=== PATIENT | male | born 1985 | race Caucasian/White ===

== ENCOUNTER 2016-06-17 10:50 | Emergency (ER) | payer OTHER ==
[~2016-06-17] VITALS: Ht 170.2 cm; Wt 124.0 kg
[~2016-06-17 10:50] MED LIST: ACID CONTROL150 MG PO; ADDERALL10 MG PO; BENTYL10 MG PO; CARAFATE100 MG/ML PO; CIPRO500 MG PO; CITALOPRAM HBR20 MG PO; CLEOCIN300 MG PO; CLINDAMYCIN HC300 MG PO; CLONIDINE HCL0.1 MG PO; DESYREL100 MG PO; FAMOTIDINE20 MG PO; FLEXERIL10 MG PO; FLUOXETINE HCL10 MG PO; HYDROCODON-ACE1 EAC7 PO; HYDROXYZINE PAM50 MG PO; IBUPROFEN200 M1 PO; INDOCIN25 MG PO; LIDOCAINE20 MG/1 M5 PO; LISINOPRIL10 MG PO; LISINOPRIL5 MG PO; METHADONE5 MG PO; MOTRIN800 MG PO; NAPROSYN500 MG PO; NO HOME MEDS; NORCO 5/3251 TABLET PO; NORCO 7.5/321 TABLET PO; PEPCID20 MG PO; PERCOCET 10/1 TABLET PO; PERCOCET 5/31 TABLET PO; PREDNISONE10 M1 PO; PROMETHAZINE HC25 M1 PO; REGLAN10 MG PO; TRAZODONE HCL50 MG PO; ULTRAM50 MG PO; VENTOLIN HFA18 GM IH; ZITHROMAX Z-PA250 MG PO; ZOFRAN ODT4 MG PO; ZOFRAN ODT8 MG PO; ZOFRAN4 MG PO
[2016-06-17] MEDS ORDERED: LISINOPRIL-HCT1 EACH PO (12:05)
[2016-06-17] MEDS ORDERED: MOTRIN800 MG PO (12:40)
[2016-06-17] MEDS ORDERED: PREDNISONE20 MG PO (12:40)
[2016-06-17] MEDS ORDERED: ATARAX,VISTARIL25 MG PO (12:40)
[2016-06-17 14:17] VITALS: BP 160/110
== END 2016-06-17 14:18 | disposition home or self-care (01) ==
LOC: RME 10:50 → EME 10:50 → RME 14:18
DX: L25.8 Unspecified contact dermatitis due to other agents (principal); S90.122A Contusion of left lesser toe(s) without damage to nail, initial encounter; W20.8XXA Other cause of strike by thrown, projected or falling object, initial encounter; Y93.B9 Activity, other involving muscle strengthening exercises; I10 Essential (primary) hypertension; F17.200 Nicotine dependence, unspecified, uncomplicated
CPT/HCPCS: 73630; 99281; 99284; J7512; Q0177

== ENCOUNTER 2016-07-14 12:10 | Emergency (ER) | payer OTHER ==
[~2016-07-14] VITALS: Ht 170.2 cm; Wt 125.0 kg
[~2016-07-14 12:10] MED LIST changes: +ATARAX,VISTARIL25 MG PO; +LISINOPRIL-HCT1 EACH PO; +PREDNISONE20 MG PO
[2016-07-14 14:49] LABS: ADD MIUA? YES; BILIRUBIN NEGATIVE; BLOOD NEGATIVE; COLOR YELLOW ((YELLOW)); GLUCOSE (STRIP) NEGATIVE; KETONES NEGATIVE; LEUKOCYTES NEGATIVE; NITRITE NEGATIVE; PROTEIN (STRIP) NEGATIVE; SPECIFIC GRAVITY 1.032 (1.000-1.030); UROBILINOGEN 0.2 MG/DL (0.2-1.0)
[2016-07-14 14:52] LABS: BACTERIA RARE /HPF; EPITHELIAL CELLS RARE /HPF; MUCUS 2+ /LPF; RED BLOOD CELLS 0-5 /HPF (0-5); UCUL ADDED? NO; WHITE BLOOD CELLS 0-5 /HPF (0-5)
[2016-07-14 14:53] LABS: CASTS NONE SEEN /LPF; CRYSTALS NONE SEEN
[2016-07-14 15:02] LABS: HEMATOCRIT 43.9 % (38.0-50.0); MCHC 34.2 G/DL (30.0-36.0); MCV 84.7 FL (86-99); MEAN PLAT.VOLUME 9.7 uM^3 (9.0-12.4); PLATELET COUNT 298 K/uL (156-360); RBC DIS.WIDTH-CV 13.9 % (11.8-14.6); RBC DIS.WIDTH-SD 42.6 % (39-53); RED BLOOD COUNT 5.18 M/uL (4.00-5.50); WHITE BLOOD COUNT 9.7 K/uL (4.1-10.2)
[2016-07-14 15:14] LABS: CHLORIDE 105 mEq/L (99-109); POTASSIUM 4.2 mEq/L (3.7-5.4); SODIUM 138 mEq/L (136-147)
[2016-07-14 15:17] LABS: GLUCOSE 106 mg/dL (70-99)
[2016-07-14 15:18] LABS: ANION GAP 8 MEQ/L (2-14); TOTAL BILIRUBIN 0.3 mg/dL (0.0-1.0)
[2016-07-14 15:20] LABS: ALKALINE PHOSPHATASE 63 IU/L (3-129); GFR ESTIMATE (CALCULATED) > 59 mL/min/
[2016-07-14 15:21] LABS: UREA NITROGEN (BUN) 15 mg/dL (9-23)
[2016-07-14 16:19] LABS: LIPASE 164 U/L (1.0-51.0)
[2016-07-14] MEDS ORDERED: PROMETHAZINE HC25 M1 PO (18:59)
[2016-07-14] MEDS ORDERED: CARAFATE1 GM PO (18:59)
[2016-07-14] MEDS ORDERED: PRILOSEC OTC20 MG PO (18:59)
[2016-07-14] MEDS ORDERED: PERCOCET 5/31 TABLET PO (18:59)
[2016-07-14 19:35] VITALS: BP 174/116
== END 2016-07-14 19:36 | disposition home or self-care (01) ==
LOC: EME 12:10
DX: K85.90 Acute pancreatitis without necrosis or infection, unspecified (principal); J45.909 Unspecified asthma, uncomplicated; I10 Essential (primary) hypertension; K21.9 Gastro-esophageal reflux disease without esophagitis; F17.200 Nicotine dependence, unspecified, uncomplicated
CPT/HCPCS: 74177; 80053; 81003; 83690; 85027; 99281; 99285; J1170; J2270; J2405; J7030; S0028

== ENCOUNTER 2016-12-21 03:15 | Emergency (ER) | payer OTHER ==
[~2016-12-21] VITALS: Ht 170.2 cm; Wt 123.2 kg
[~2016-12-21 03:15] MED LIST changes: +CARAFATE1 GM PO; +PRILOSEC OTC20 MG PO
[2016-12-21] MEDS ORDERED: CLEOCIN300 MG PO (04:33)
[2016-12-21] MEDS ORDERED: TRAMADOL HCL50 MG PO (04:33)
[2016-12-21 04:44] VITALS: BP 164/111
== END 2016-12-21 04:44 | disposition home or self-care (01) ==
LOC: EME 03:15
PROC: 3E0T3BZ Introduction of Anesthetic Agent into Peripheral Nerves and Plexi, Percutaneous Approach (ICD-10-PCS; principal; 2016-12-21)
DX: K08.89 Other specified disorders of teeth and supporting structures (principal); F17.200 Nicotine dependence, unspecified, uncomplicated; Z88.1 Allergy status to other antibiotic agents; Z88.2 Allergy status to sulfonamides; Z88.0 Allergy status to penicillin
CPT/HCPCS: 99281; 99283

== ENCOUNTER 2017-01-22 13:29 | Emergency (ER) | payer OTHER ==
[~2017-01-22] VITALS: Ht 168.9 cm; Wt 123.6 kg
[~2017-01-22 13:29] MED LIST changes: +TRAMADOL HCL50 MG PO
[2017-01-22 13:59] LABS: BASE EXCESS 1.2 mEq/L (-3 to +3); BICARBONATE 25.1 mEq/L (22-26); CARBOXY HGB 0.7 % (0-5); COMMENTS - BLOOD GASES NEG A+C+; METHEMOGLOBIN 0.5 % (0-1.5); PCO2 37 mm Hg (35-45); PO2 65 mm Hg (80-100); SITE LR; pH 7.44 (7.35-7.45)
[2017-01-22 14:00] LABS: DEVICE RA; TOTAL RESP RATE 20 resp/min
[2017-01-22] MEDS ORDERED: PROAIR HFA8.5 GM IH (14:16)
[2017-01-22 14:41] VITALS: BP 150/67
== END 2017-01-22 14:41 | disposition home or self-care (01) ==
LOC: EME 13:29
PROVIDERS: Physician Assistant
DX: T59.811A Toxic effect of smoke, accidental (unintentional), initial encounter (principal); J70.5 Respiratory conditions due to smoke inhalation; Z88.1 Allergy status to other antibiotic agents; Z88.2 Allergy status to sulfonamides; Z88.0 Allergy status to penicillin
CPT/HCPCS: 36600; 82803; 94640; 99281; 99284

== ENCOUNTER 2017-02-21 01:45 | Emergency (ER) | payer OTHER ==
[~2017-02-21] VITALS: Ht 170.2 cm; Wt 119.0 kg
[~2017-02-21 01:45] MED LIST changes: +PROAIR HFA8.5 GM IH
[2017-02-21 03:12] VITALS: BP 171/114
== END 2017-02-21 03:13 | disposition home or self-care (01) ==
LOC: EME → EDBD 01:45 → EME 01:45
DX: F33.1 Major depressive disorder, recurrent, moderate (principal); F41.9 Anxiety disorder, unspecified; Z63.8 Other specified problems related to primary support group; F98.8 Other specified behavioral and emotional disorders with onset usually occurring in childhood and adolescence; I10 Essential (primary) hypertension; K21.9 Gastro-esophageal reflux disease without esophagitis; J45.909 Unspecified asthma, uncomplicated; F17.200 Nicotine dependence, unspecified, uncomplicated; Z88.0 Allergy status to penicillin
CPT/HCPCS: 90839; 99281; 99283

== ENCOUNTER 2017-05-04 03:37 | Emergency (ER) | payer OTHER ==
[~2017-05-04] VITALS: Ht 167.6 cm; Wt 120.0 kg
[2017-05-04 04:21] LABS: HEMATOCRIT 43.7 % (38.0-50.0); MCH 28.3 PG (29.0-34.0); MCHC 33.2 G/DL (30.0-36.0); MCV 85.2 FL (86-99); MEAN PLAT.VOLUME 9.3 uM^3 (9.0-12.4); PLATELET COUNT 304 K/uL (156-360); RBC DIS.WIDTH-CV 13.9 % (11.8-14.6); RBC DIS.WIDTH-SD 43.5 % (39-53); RED BLOOD COUNT 5.13 M/uL (4.00-5.50)
[2017-05-04 04:32] LABS: CHLORIDE 105 mEq/L (99-109); POTASSIUM 3.8 mEq/L (3.7-5.4); SODIUM 139 mEq/L (136-147)
[2017-05-04 04:34] LABS: GLUCOSE 127 mg/dL (70-99)
[2017-05-04 04:35] LABS: ANION GAP 11 MEQ/L (2-14)
[2017-05-04 04:38] LABS: GFR ESTIMATE (CALCULATED) > 59 mL/min/; UREA NITROGEN (BUN) 11 mg/dL (9-23)
[2017-05-04 04:42] LABS: TROP-I INTERPRETATION NEGATIVE; TROPONIN-I < 0.01 ng/mL (0.0-0.30)
[2017-05-04 05:50] LABS: TROP-I INTERPRETATION NEGATIVE; TROPONIN-I 0.01 ng/mL (0.0-0.30)
[2017-05-04 06:07] VITALS: BP 161/86
== END 2017-05-04 06:07 | disposition home or self-care (01) ==
LOC: EME → EDBD 03:37 → EME 06:07
PROVIDERS: Physician Assistant
DX: R00.2 Palpitations (principal); F14.10 Cocaine abuse, uncomplicated; F12.90 Cannabis use, unspecified, uncomplicated; R00.0 Tachycardia, unspecified; I10 Essential (primary) hypertension; F17.200 Nicotine dependence, unspecified, uncomplicated
CPT/HCPCS: 71020; 80048; 84484; 85027; 93005; 99281; 99285